=== PATIENT | female | born 2000 | race African-American/Black ===

== ENCOUNTER 2023-12-28 08:51 | Emergency (ER) | payer MEDICAID ==
[~2023-12-28] VITALS: Ht 162.6 cm; Wt 59.0 kg
[2023-12-28 09:12] VITALS: BP 116/68; TEMP 97.9; O2SAT 99
[2023-12-28] MEDS ORDERED: AMOX500C2 PO (10:16)
[2023-12-28] MEDS ORDERED: FLUT16SP16 BNOSTRILS (10:16)
--- NOTE | 2023-12-28 10:42 | NUR ---
Patient given written and verbal discharge instructions. Patient verbalizes understanding of instructions. Patient is ambulatory with steady gait.
== END 2023-12-28 10:42 | disposition home or self-care (01) ==
LOC: ER 09:01
DX: H92.02 Otalgia, left ear (principal)